=== PATIENT | male | born 1990 | race Caucasian/White ===

== ENCOUNTER 2016-12-24 20:46 | Observation (INO) | payer OTHER ==
[2016-12-24 21:06] VITALS: BMI 22.4
--- NOTE | 2016-12-24 21:07 | PDOC ---
Rapid Medical Evaluation Time Seen by Provider: 12/24/16 21:01 Medical Evaluation: 12/24/16 21:03 I have performed a brief in-person evaluation of this patient. The patient presents with a chief complaint of: "irregular heartbeat", palpitations x 1 week, sent in by urgent care. Also c/o of frequent urination. Denies chest pain, SOB I have ordered the following: EKG, UA, Ucx The patient will proceed to the ED for further evaluation.
[2016-12-24 21:44] LABS: URINE APPEARANCE CLEAR; URINE BILIRUBIN NEGATIVE (NEGATIVE); URINE BLOOD NEGATIVE (NEGATIVE); URINE COLOR STRAW; URINE GLUCOSE (UA) NEGATIVE (NEGATIVE); URINE KETONE NEGATIVE (NEGATIVE); URINE NITRITE NEGATIVE (NEGATIVE); URINE PROTEIN NEGATIVE (NEGATIVE); URINE UROBILINOGEN NEGATIVE mg/dL (0.2-1.0)
[2016-12-24 22:55] LABS: URINE LEUK ESTERASE Negative (NEGATIVE)
--- NOTE | 2016-12-24 23:21 | PDOC ---
History of Present Illness - General History Source: Patient, Family Exam Limitations: No Limitations - History of Present Illness Initial Comments: 12/24/16 23:54 The patient is a 26 year old male presenting with his mother, with no significant past medical history, who presents to the emergency department with palpitations for the past week. He reports that he went to urgent care who advised him to come to the ED due to high blood pressure. He states that he has been taking multiple supplements in order to gain muscle mass but denies any creatine use. He reports that he has been losing weight for the last couple of months. He reports a family history of thyroid disease. The patient denies chest pain, shortness of breath, headache and dizziness. Denies fever, chills, nausea, vomit, diarrhea and constipation. Denies dysuria, frequency, urgency and hematuria. Allergies: None Past surgical history: None reported Social history: No alcohol, tobacco or drug use reported <Carson Alvarez - Last Filed: 12/24/16 23:52> <Veronica Finn - Last Filed: 12/25/16 19:56> - General Chief Complaint: Palpitations Stated Complaint: PALPITATIONS Time Seen by Provider: 12/24/16 21:01 Past History <Carson Alvarez - Last Filed: 12/24/16 23:52> - Past Medical History COPD: No - Suicide/Smoking/Psychosocial Hx Smoking History: Never smoked Have you smoked in the past 12 months: No Information on smoking cessation initiated: No Hx Alcohol Use: No Drug/Substance Use Hx: No <Veronica Finn - Last Filed: 12/25/16 19:56> - Past Medical History Allergies/Adverse Reactions: Allergies Allergy/AdvReac Type Severity Reaction Status Date / Time No Known Allergies Allergy Verified 12/25/16 03:09 Review of Systems - Review of Systems Able to Perform ROS?: Yes Comments:: 12/24/16 23:56 GENERAL/CONSTITUTIONAL: No fever or chills. No weakness. HEAD, EYES, EARS, NOSE AND THROAT: No change in vision. No ear pain or discharge. No sore throat.- CARDIOVASCULAR: (+) Palpitations. No chest pain or shortness of breath RESPIRATORY: No cough, wheezing, or hemoptysis. GASTROINTESTINAL: No nausea, vomiting, diarrhea or constipation. GENITOURINARY: No dysuria, frequency, or change in urination. MUSCULOSKELETAL: No joint or muscle swelling or pain. No neck or back pain. SKIN: No rash NEUROLOGIC: No headache, vertigo, loss of consciousness, or change in strength/ sensation. ENDOCRINE: No increased thirst. No abnormal weight change HEMATOLOGIC/LYMPHATIC: No anemia, easy bleeding, or history of blood clots. ALLERGIC/IMMUNOLOGIC: No hives or skin allergy. <Carson Alvarez - Last Filed: 12/24/16 23:52> *Physical Exam - Vital Signs Last Vital Signs Temp Pulse Resp BP Pulse Ox 98.3 F 61 18 154/83 100 12/24/16 21:05 12/24/16 21:05 12/24/16 21:05 12/24/16 21:05 12/24/16 21:05 <Carson Alvarez - Last Filed: 12/24/16 23:52> - Vital Signs Last Vital Signs Temp Pulse Resp BP Pulse Ox 98.3 F 61 18 154/83 100 12/24/16 21:05 12/24/16 21:05 12/24/16 21:05 12/24/16 21:05 12/24/16 21:05 - Physical Exam Comments: GENERAL: Awake, alert, and fully oriented, in no acute distress HEAD: No signs of trauma EYES: PERRLA, EOMI, sclera anicteric, conjunctiva clear ENT: Auricles normal inspection, hearing grossly normal, nares patent, oropharynx clear without exudates. Moist mucosa NECK: Normal ROM, supple, no lymphadenopathy, JVD. +Thyromegaly. LUNGS: Breath sounds equal, clear to auscultation bilaterally. No wheezes, and no crackles HEART: Regular rate and rhythm, normal S1 and S2, no murmurs, rubs or gallops ABDOMEN: Soft, nontender, normoactive bowel sounds. No guarding, no rebound. No masses EXTREMITIES: Normal range of motion, no edema. No clubbing or cyanosis. No cords, erythema, or tenderness NEUROLOGICAL: Cranial nerves II through XII grossly intact. Normal speech, normal gait SKIN: Warm, Dry, normal turgor, no rashes or lesions noted. <Veronica Finn - Last Filed: 12/25/16 19:56> ED Treatment Course - ADDITIONAL ORDERS Additional order review: Laboratory Results 12/24/16 21:38 Urine Color Straw Urine Appearance Clear Urine pH 5.0 Ur Specific [place] 1.013 Urine Protein Negative Urine Glucose (UA) Negative Urine Ketones Negative Urine Blood Negative Urine Nitrite Negative Urine Bilirubin Negative Urine Urobilinogen Negative Ur Leukocyte Esterase Negative <Carson Alvarez - Last Filed: 12/24/16 23:52> - LABORATORY CBC & Chemistry Diagram: 12/24/16 00:00 12/24/16 00:00 - ADDITIONAL ORDERS Additional order review: Laboratory Results 12/24/16 21:38 Urine Color Straw Urine Appearance Clear Urine pH 5.0 Ur Specific [place] 1.013 Urine Protein Negative Urine Glucose (UA) Negative Urine Ketones Negative Urine Blood Negative Urine Nitrite Negative Urine Bilirubin Negative Urine Urobilinogen Negative Ur Leukocyte Esterase Negative <Veronica Finn - Last Filed: 12/25/16 19:56> Medical Decision Making - Medical Decision Making 12/25/16 02:[address] Maguire. Initial cardiac enzyme slightly elevated. Pt has been using supplements at the gym (L-carnitine and aspartic acid) as well as energy drinks. I explained that in addition to the energy drink, the supplements often contain caffeine as well, which may be related to his symptoms. Awaiting repeat enzyme, dispo to be decided based on cardiac enzyme. <Veronica Finn - Last Filed: 12/25/16 19:56> *DC/Admit/Observation/Transfer - Attestations Scribe Attestion: 12/24/16 23:56 Documentation prepared by Carson Alvarez, acting as medical administrative specialist for Veronica Finn MD <Carson Alvraez - Last Filed: 12/24/16 23:52> <Veronica Finn - Last Filed: 12/25/16 19:56> Diagnosis at time of Disposition: Elevated troponin - Discharge Dispostion Condition at time of disposition: Fair
[2016-12-25 00:12] LABS: BASOPHIL 0.5 % (0-2.0); EOSINOPHIL 3.3 % (0-4.5); MCH 29.6 pg (25.7-33.7); MCHC 35.2 g/dl (32.0-35.9); MEAN PLT VOLUME 9.1 fl (7.5-11.1); NEUTROPHILS 78.6 % (42.8-82.8); PLATELET COUNT 273 K/MM3 (134-434); WHITE BLOOD COUNT 11.6 K/mm3 (4.0-10.0)
[2016-12-25 01:37] LABS: ALBUMIN 4.1 g/dl (3.4-5.0); ALK PHOS 58 U/L (45-117); ANION GAP 10 (8-16); BILIRUBIN,TOTAL 0.4 mg/dL (0.2-1.0); CALCIUM 8.3 mg/dL (8.5-10.1); CO2 29 mmol/L (21-32); CPK 848 IU/L (39-308); CREATININE 0.9 mg/dL (0.7-1.3); GLUCOSE,RANDOM 101 mg/dL (74-106); SGOT/AST 20 U/L (15-37); SGPT/ALT 24 U/L (12-78); TOT PROT 7.3 g/dl (6.4-8.2)
[2016-12-25 04:42] LABS: CPK 730 IU/L (39-308); TROPONIN I 0.11 ng/ml (0.00-0.05)
[2016-12-25 05:01] LABS: THYROID STIMULATING HORMONE 2.36 uIU/ml (0.358-3.74)
--- NOTE | 2016-12-25 05:21 | PDOC ---
*Physical Exam - Vital Signs Last Vital Signs Temp Pulse Resp BP Pulse Ox 98.3 F 61 18 154/83 100 12/24/16 21:05 12/24/16 21:05 12/24/16 21:05 12/24/16 21:05 12/24/16 21:05 - Physical Exam Comments: 12/25/16 05:16 gen: sleeping, easily arousable nad ED Treatment Course - LABORATORY CBC & Chemistry Diagram: 12/24/16 00:00 12/24/16 00:00 - ADDITIONAL ORDERS Additional order review: Laboratory Results 12/25/16 12/24/16 12/24/16 04:00 21:38 00:00 Sodium 142 Potassium 3.6 Chloride 103 Carbon Dioxide 29 Anion Gap 10 BUN 16 Creatinine 0.9 Creat Clearance w eGFR > 60 Random Glucose 101 Calcium 8.3 L Total Bilirubin 0.4 AST 20 ALT 24 Alkaline Phosphatase 58 Creatine Kinase 730 H 848 H Creatine Kinase Index 0.1 CK-MB (CK-2) < 1.000 Troponin I 0.11 H 0.10 H Total Protein 7.3 Albumin 4.1 TSH 2.36 Urine Color Straw Urine Appearance Clear Urine pH 5.0 Ur Specific [place] 1.013 Urine Protein Negative Urine Glucose (UA) Negative Urine Ketones Negative Urine Blood Negative Urine Nitrite Negative Urine Bilirubin Negative Urine Urobilinogen Negative Ur Leukocyte Esterase Negative 12/24/16 00:00 RBC 5.11 MCV 84.0 MCHC 35.2 RDW 14.0 MPV 9.1 Neutrophils % 78.6 Lymphocytes % 12.4 Monocytes % 5.2 Eosinophils % 3.3 Basophils % 0.5 Medical Decision Making - Medical Decision Making 12/25/16 05:16 a/p: 26yo male signed out pending repeat trop. initial trop mildly elevated repeat trop mildly trending up. call placed to PMD - 12/25/16 05:[address] Matias who accepts pt to service. Requests consult to cardiology - dr. marin. admit to tele for elevated trop. *DC/Admit/Observation/Transfer Diagnosis at time of Disposition: Elevated troponin - Discharge Dispostion Condition at time of disposition: Fair Admit: Yes - Referrals Referrals: Mansoor Matias MD [Primary Care Provider] - - Patient Instructions - Post Discharge Activity
[2016-12-25] MEDS ORDERED: ASPIRIN 81 MG CHEWABLE TABLETS PO ONE (05:23)
[2016-12-25] MEDS ORDERED: ASPIRIN 325 MG TABLET ONE (05:38)
[2016-12-25 08:44] LABS: CPK 851 IU/L (39-308); TROPONIN I 0.12 ng/ml (0.00-0.05)
[2016-12-25 09:02] LABS: URINE MARIJUANA THC NEGATIVE ng/ml (CUTOFF=50)
--- NOTE | 2016-12-25 10:44 | HP ---
Admitting History and Physical - Admission Chief Complaint: came c/o paplpitationsx 1 day. apeaed tremuless. dinied cp sob History of Present Illness: pt has been taking carnitine and energy drinks x 9 yrs last dose 5 days agdenies other drug use History Source: Patient, Family Member Limitations to Obtaining History: No Limitations - Past Medical History Cardiovascular: Yes: Other (s tach) - Past Surgical History Past Surgical History: Yes: None - Smoking History Smoking history: Never smoked Have you smoked in the past 12 months: No - Alcohol/Substance Use Hx Alcohol Use: No - Social History Usual Living Arrangement: Yes: With Parent ADL: Independent History of Recent Travel: No Home Medications - Allergies Allergies/Adverse Reactions: Allergies Allergy/AdvReac Type Severity Reaction Status Date / Time No Known Allergies Allergy Verified 12/25/16 03:09 Family Disease History - Family Disease History Family History: Unremarkable Review of Systems - Review of Systems Constitutional: reports: Other (apprehensive) Eyes: reports: No Symptoms HENT: reports: No Symptoms Neck: reports: No Symptoms Cardiovascular: reports: Palpitations Respiratory: reports: No Symptoms Gastrointestinal: reports: No Symptoms Genitourinary: reports: No Symptoms Breasts: reports: No Symptoms Reported Musculoskeletal: reports: No Symptoms Integumentary: reports: No Symptoms Neurological: reports: No Symptoms Endocrine: reports: No Symptoms, Unexplained Weight Gain Psychiatric: reports: Anxiety Physical Examination Vital Signs: Vital Signs Temperature 98.3 F 12/25/16 07:50 Pulse Rate 85 12/25/16 07:50 Respiratory Rate 18 12/25/16 07:50 Blood Pressure 145/80 12/25/16 07:50 O2 Sat by Pulse Oximetry (%) 100 12/25/16 08:14 Constitutional: Yes: Well Nourished Eyes: Yes: WNL HENT: Yes: WNL Neck: Yes: WNL Cardiovascular: Yes: Regular Rate and Rhythm Respiratory: Yes: WNL Gastrointestinal: Yes: WNL ...Rectal Exam: Yes: Deferred Renal/: Yes: WNL Breast(s): Yes: WNL Musculoskeletal: Yes: WNL Extremities: Yes: WNL Edema: No Peripheral Pulses WNL: Yes Integumentary: Yes: WNL Neurological: Yes: WNL ...Motor Strength: WNL Psychiatric: Yes: Alert, Oriented Labs: CBC, BMP 12/24/16 00:00 12/24/16 00:00 Problem List - Problems (1) Tachycardia Code(s): R00.0 - TACHYCARDIA, UNSPECIFIED (2) Anxiety Code(s): F41.9 - ANXIETY DISORDER, UNSPECIFIED Assessment/Plan librium 25mg bid card x1 more card to see pt ekg observation ? d/c in am if ok w card or strees test in am echo
[2016-12-25] MEDS ORDERED: SODIUM CHLORIDE 1,000 ML IV ONE (10:55)
--- NOTE | 2016-12-25 11:29 | CON.CARD ---
Consult Consult Specialty:: Cardiology Referred by:: Dr. Mansoor Matias Reason for Consultation:: Palpitations, elevated troponin - History of Present Illness Chief Complaint: Palpitations, sent from urgent care History of Present Illness: 26 year old man with no sig pmh sent from urgent care to ER last night after he had presented there with palpitations and found to have an abnormal EKG. Pt seen and examined this am in nad. Pt states that he was out to dinner with his father last night when he felt sudden onset palpitations and feeling of severe anxiety and heart pounding. He then went to the urgent care center that was next door to the restaurant and ekg was done there and he was told it was abnormal and should go to the ER. He denies any prior episodes like this. states he has had occasional palpitations in the past but much milder and shorter duration. He denies any chest pain, sob. No lightheadedness, dizziness, syncope, or near syncope. No pnd, orthopnea, or LE edema. Of note he does take dietary supplements and drinks a lot of energy drinks. He has been using Carnitine supplement recently. He states that he had been running 5K races about once a week up until recently when he injured his back. He did just start exercising again and states he was doing Leg presses this past thursday which was the 2nd time thus far he has exercised with weight lifting. - History Source History Provided By: Patient, Family Member Limitations to Obtaining History: No Limitations - Past Surgical History Past Surgical History: Yes: None - Alcohol/Substance Use Hx Alcohol Use: No - Smoking History Smoking history: Never smoked Have you smoked in the past 12 months: No - Social History ADL: Independent History of Recent Travel: No Home Medications - Allergies Allergies/Adverse Reactions: Allergies Allergy/AdvReac Type Severity Reaction Status Date / Time No Known Allergies Allergy Verified 12/25/16 03:09 Family Disease History - Family Disease History Family Disease History: Heart Disease: Father, Mother, Respiratory: Father Review of Systems - Review of Systems Constitutional: denies: No Symptoms, Chills, Diaphoresis, Fever, Lethargy, Loss of Appetite, Malaise, Night Sweats, Unintentional Wgt. Loss, Weakness, Other Eyes: denies: No Symptoms, Blind Spots, Blurred Vision, Double Vision, Eye Pain , Floaters, Photophobia, Recent Change in Vision, Other HENT: denies: No Symptoms, Difficult Swallowing, Ear Discharge, Ear Pain, Epistaxis, Gingival Bleeding, Hearing Loss, Mouth Swelling, Nasal Congestion, Ocular Prosthesis, Throat Pain, Toothache, Ringing in Ears, Other Neck: denies: No Symptoms, Decreased ROM, Lumps, Pain on Movement, Stiffness, Swollen Glands, Tenderness, Other Cardiovascular: reports: Palpitations. denies: No Symptoms, Chest Pain, Edema, Shortness of Breath, Other Respiratory: denies: No Symptoms, Cough, Exercise Intolerance, Hemoptysis, Orthopnea, PND, Snoring, SOB, SOB on Exertion, Wheezing, Other Gastrointestinal: denies: No Symptoms, Abdominal Pain, Bloating, Constipation, Diarrhea, Dysphagia, Indigestion, Melena, Nausea, Rectal Bleeding, Vomiting, Vomiting Blood, Other Genitourinary: denies: No Symptoms, Burning, Discharge, Dysuria, Flank Pain, Frequency, Hematuria, Incontinence, Lesions, Menses, Pain, Testicular Mass, Testicular Pain, Testicular Swelling, Urgency, Vaginal Bleeding, Other Breasts: denies: No Symptoms Reported, See HPI, Breast Implants, Discharge from Nipple, Lumps, Pain, Skin Changes, Other Musculoskeletal: denies: No Symptoms, Back Pain, Crepitus, Decreased ROM, Extremity Pain, Joint Pain, Joint Swelling, Muscle Pain, Muscle Cramps, Muscle Weakness, Other Integumentary: denies: No Symptoms, Blister, Bruising, Change in Color, Eczema, Erythema, Incision, Lesions, Lump, Pallor, Pruritis, Rash, Wound, Other Neurological: reports: Other (anxiousness). denies: No Symptoms, Change in LOC , Change in Speech, Confusion, Dizziness, Headache, Incoordination, Numbness, Parasthesia, Pre-Existing Deficit, Seizure, Syncope, Tremors, Unsteady Gait, Weakness Endocrine: denies: No Symptoms, Excessive Sweating, Flushing, Increased Hunger, Increased Thirst, Intolerance to Cold, Intolerance to Heat, Unexplained Weight Gain, Unexplained Weight Loss, Other Hematology/Lymphatic: denies: No Symptoms, Easily Bruised, Excessive Bleeding, Swollen Glands, Other Psychiatric: reports: Anxiety. denies: No Symptoms, Altered Sleep Pattern, Depression, Hallucinations, Panic, Paranoia, Suicidal, Other Vital Signs: Vital Signs Temperature 98.3 F 12/25/16 10:30 Pulse Rate 101 H 12/25/16 10:30 Respiratory Rate 18 12/25/16 10:30 Blood Pressure 140/82 12/25/16 10:30 O2 Sat by Pulse Oximetry (%) 100 12/25/16 10:30 Constitutional: Yes: Well Nourished, No Distress, Calm Eyes: Yes: WNL, Conjunctiva Clear, EOM Intact, PERRL HENT: Yes: WNL, Atraumatic, Normocephalic Neck: Yes: WNL, Supple, Trachea Midline Respiratory: Yes: WNL, Regular, CTA Bilaterally. No: Rales, Rhonchi, Wheezes Gastrointestinal: Yes: WNL, Normal Bowel Sounds, Soft. No: Distention, Tenderness Renal/: Yes: WNL Cardiovascular: Yes: WNL, Regular Rate and Rhythm. No: Bradycardia, Tachycardia , Pulse Irregular, Gallop, Rub, Varicosities JVD: No Carotid Bruit: No PMI: Non-Displaced Heart Sounds: Yes: S1, S2. No: Split S2, S3, S4, Clicks, Gallop, Rub, Bruit Murmur: No: Systolic Murmur, Diastolic Murmur, Grade 1, Grade 2, Grade 3, Grade 4, Grade 5, Grade 6 Musculoskeletal: Yes: WNL, Back Pain Extremities: Yes: WNL Edema: No Peripheral Pulses WNL: Yes Peripheral Pulses: 2+ Left Doralis Pedis, 2+ Right Dorsalis Pedis Integumentary: Yes: WNL Neurological: Yes: WNL, Alert, Oriented, Cran Nerves II-XII Intact ...Motor Strength: WNL Psychiatric: Yes: WNL, Alert, Oriented - Other Data Labs, Other Data: CBC, BMP 12/24/16 00:00 12/24/16 00:00 Troponin, BNP 12/24/16 12/25/16 12/25/16 00:00 04:00 08:04 Troponin I 0.10 H 0.11 H 0.12 H Troponin, BNP 12/24/16 12/25/16 12/25/16 00:00 04:00 08:04 Troponin I 0.10 H 0.11 H 0.12 H EKG-NSR 86bpm, sinus arrhythmia, poor R progression Echo: Pending Imaging - Results Chest X-ray: Report Reviewed, Image Reviewed EKG: Report Reviewed, Image Reviewed Other: Report Reviewed, Image Reviewed (tele-nsr, sinus tach) Assessment/Plan 26 year old man with no sig pmh sent from urgent care to ER last night after he had presented there with palpitations and found to have an abnormal EKG and elevated CK and troponin. Palpitations-uncertain etiology, possible arrhythmia, likely stimulated by excessive energy drink and supplement usage -called to obtain copy of EKG from urgent care center -EKG here showed NSR, sinus arrhythmia -monitor on telemetry -hold off on medications for arrhythmia until diagnosis made -if no arrhythmia discovered here will plan for longer term outpatient event monitor -again discussed with him that he should stop drinking energy drinks and likely stop the supplements he is using Elevated troponin-minimally elevated with CK level elevated out of proportion with normal CK-MB index -unlikely ACS -EKG did not show ischemia -troponin did not trend up -would cont to trend CK and troponin -possible demand ischemia from arrhythmia -CK likely elevated due to recent strenuous exercise, evidence of mild rhabdomyolysis -recc adequate po fluid intake -will give 1 Liter IVF NS -will check echo to evaluate for structural heart disease -pt would benefit from some type of ischemic work up, would prefer to avoid stress testing at this time in setting of mild rhabdomyolysis and risk of further precipitation -if troponin does not trend up and if echo shows normal structural heart will plan for further work up as outpatient which may include stress testing and possible CTA coronaries to evaluate for myocardial bridge or anomalous coronaries as well as for CAD
[2016-12-25 15:04] LABS: CPK 799 IU/L (39-308)
--- NOTE | 2016-12-25 16:30 | EKG ---
Test Reason : Blood Pressure : / mmHG Vent. Rate : 091 BPM Atrial Rate : 091 BPM P-R Int : 144 ms QRS Dur : 088 ms QT Int : 362 ms P-R-T Axes : 073 045 034 degrees QTc Int : 445 ms NORMAL SINUS RHYTHM POSSIBLE LEFT ATRIAL ENLARGEMENT BORDERLINE ECG WHEN COMPARED WITH ECG OF 25-DEC-2016 08:15, NO SIGNIFICANT CHANGE WAS FOUND Confirmed by MYRA SOL MD ([id number]) on 12/25/2016 4:29:52 PM Referred By: Confirmed By:MYRA SOL MD
--- NOTE | 2016-12-25 16:32 | EKG ---
Test Reason : Blood Pressure : / mmHG Vent. Rate : 100 BPM Atrial Rate : 100 BPM P-R Int : 150 ms QRS Dur : 090 ms QT Int : 362 ms P-R-T Axes : 073 070 058 degrees QTc Int : 466 ms NORMAL SINUS RHYTHM POSSIBLE LEFT ATRIAL ENLARGEMENT BORDERLINE ECG WHEN COMPARED WITH ECG OF 25-DEC-2016 08:14, NO SIGNIFICANT CHANGE WAS FOUND Confirmed by MYRA SOL MD ([id number]) on 12/25/2016 4:32:02 PM Referred By: Confirmed By:MYRA SOL MD
--- NOTE | 2016-12-25 16:32 | EKG ---
Test Reason : Blood Pressure : / mmHG Vent. Rate : 086 BPM Atrial Rate : 086 BPM P-R Int : 146 ms QRS Dur : 096 ms QT Int : 366 ms P-R-T Axes : 065 033 048 degrees QTc Int : 437 ms SINUS RHYTHM WITH MARKED SINUS ARRHYTHMIA OTHERWISE NORMAL ECG NO PREVIOUS ECGS AVAILABLE Confirmed by SWETA GUAMAN, MYRA ([id number]) on 12/25/2016 4:32:37 PM Referred By: Confirmed By:MYRA SOL MD
[2016-12-25] MEDS: chlordiazePOXIDE HCL 25 MG CAPSULE PO SCH (21:23)
[2016-12-26 07:16] LABS: EOSINOPHIL 5.5 % (0-4.5); MCH 28.8 pg (25.7-33.7); MCHC 34.5 g/dl (32.0-35.9); MEAN CELL VOLUME 83.4 fl (80-96); MEAN PLT VOLUME 9.1 fl (7.5-11.1); NEUTROPHILS 58.3 % (42.8-82.8); PLATELET COUNT 255 K/MM3 (134-434); RDW 13.9 % (11.9-15.9); WHITE BLOOD COUNT 7.1 K/mm3 (4.0-10.0)
[2016-12-26 08:08] VITALS: BP 123/73; PULSE 77; TEMP 98
[2016-12-26 08:09] LABS: ANION GAP 9 (8-16); CALCIUM 8.8 mg/dL (8.5-10.1); CO2 27 mmol/L (21-32); GLUCOSE,RANDOM 84 mg/dL (74-106)
--- NOTE | 2016-12-26 08:42 | PN ---
Progress Note, Physician History of Present Illness: pt seen and examined today in nad. states that he slept well last night and that he felt much better after receiving Librium. He states that he did feel his heart pounding while on telemetry but this feeling stopped after receiving Librium. - Current Medication List Current Medications: Active Medications Chlordiazepoxide HCl (Librium -) 25 mg PO BID MAGDI Last Admin: 12/25/16 21:23 Dose: 25 mg - Objective Vital Signs: Vital Signs Temperature 98 F 12/26/16 08:07 Pulse Rate 77 12/26/16 08:07 Respiratory Rate 20 12/26/16 08:07 Blood Pressure 123/73 12/26/16 08:07 O2 Sat by Pulse Oximetry (%) 100 12/26/16 00:00 Constitutional: Yes: Well Nourished, No Distress, Calm Eyes: Yes: WNL, Conjunctiva Clear, EOM Intact, PERRL HENT: Yes: WNL, Atraumatic, Normocephalic Neck: Yes: WNL, Supple, Trachea Midline Cardiovascular: Yes: WNL, Regular Rate and Rhythm, S1, S2. No: Bradycardia, Tachycardia, Pulse Irregular, Bruit, JVD, Gallop, Murmur, Rub, S3, S4, Varicosities Respiratory: Yes: WNL, Regular, CTA Bilaterally. No: Rales, Rhonchi, Wheezes Gastrointestinal: Yes: WNL, Normal Bowel Sounds, Soft. No: Distention, Tenderness Musculoskeletal: Yes: WNL Extremities: Yes: WNL Edema: No Peripheral Pulses WNL: Yes Peripheral Pulses: Left Doralis Pedis: 2+, Right Dorsalis Pedis: 2+ Integumentary: Yes: WNL Neurological: Yes: WNL, Alert, Oriented, Cran Nerves II-XII Intact ...Motor Strength: WNL Psychiatric: Yes: WNL, Alert, Oriented Labs: CBC, BMP 12/26/16 05:19 12/26/16 05:19 - ....Imaging Chest X-ray: Report Reviewed, Image Reviewed EKG: Report Reviewed, Image Reviewed Other: Report Reviewed, Image Reviewed (tele-sinus bradycardia while sleeping, NSR currently, no significant arrhythmias recorded since admission) Assessment/Plan 26 year old man with no sig pmh sent from urgent care to ER last night after he had presented there with palpitations and found to have an abnormal EKG and elevated CK and troponin. Palpitations-uncertain etiology, possible arrhythmia, likely stimulated by excessive energy drink and supplement usage -EKG reviewed from urgent care center, showed NSR, no arrhythmia -EKG here showed NSR, sinus arrhythmia -no sig arrhythmias recorded on telemetry only sinus bradycardia while sleeping and otherwise NSR -will plan for longer term outpatient event monitor -again discussed with him that he should stop drinking energy drinks and likely stop the supplements he is using -he will avoid strenuous exercise until further evaluation completed as outpatient Elevated troponin-minimally elevated with CK level elevated out of proportion with normal CK-MB index -unlikely ACS -EKG did not show ischemia -troponin did not trend up -possible demand ischemia from possible arrhythmia vs CK likely elevated due to recent strenuous exercise, evidence of mild rhabdomyolysis -Echo showed overall normal structural heart, normal LV systolic function, no sig valvular abnl -pt would benefit from some type of ischemic work up, would prefer to avoid stress testing at this time in setting of mild rhabdomyolysis and risk of further precipitation -will plan for further work up as outpatient which may include stress testing and possible CTA coronaries to evaluate for myocardial bridge or anomalous coronaries as well as for CAD Pt is acceptable from a cardiac standpoint for discharge home. He agrees to follow up in the office within 1 week for further work up as above.
[2016-12-26] MEDS: chlordiazePOXIDE HCL 25 MG CAPSULE PO SCH ×2 (09:18→09:45)
== END 2016-12-26 10:45 | disposition home or self-care (01) ==
LOC: JER 20:46 → INTOOBSV 12-25 05:53 → JERBED 12-25 05:53 → UNDOADMOB 12-25 05:53 → JERBED 12-25 07:41 → J4W 12-25 13:49
PROVIDERS: ADMIT Family Medicine; ATTEND Family Medicine
PROC: 3E0337Z Introduction of Electrolytic and Water Balance Substance into Peripheral Vein, Percutaneous Approach (ICD-10-PCS; principal; 2016-12-25)
DX: R00.2 Palpitations (principal); R77.8 Other specified abnormalities of plasma proteins; R00.0 Tachycardia, unspecified; F41.9 Anxiety disorder, unspecified
CPT/HCPCS: 36415; 71010-TC; 80048; 80053; 80307; 81003; 82550; 82553; 84443; 84484; 85025; 87086; 93005; 93010; 93306-TC; 99285-25; G0378